=== PATIENT | female | born 1990 | race African-American/Black ===

== ENCOUNTER 2018-03-31 16:55 | Emergency (ER) | payer OTHER ==
[~2018-03-31] VITALS: Ht 160 cm; Wt 72.6 kg
== END 2018-03-31 19:18 | disposition home or self-care (01) ==
LOC: ER 16:55
DX: B34.9 Viral infection, unspecified (principal); K29.70 Gastritis, unspecified, without bleeding

== ENCOUNTER 2019-10-28 16:11 | Emergency (ER) | payer OTHER ==
[~2019-10-28] VITALS: Ht 160 cm; Wt 72.6 kg
[2019-10-28] MEDS ORDERED: DICLOFENAC SODI75 MG PO (19:50)
== END 2019-10-28 21:10 | disposition home or self-care (01) ==
LOC: ER
DX: G44.209 Tension-type headache, unspecified, not intractable (principal); M94.0 Chondrocostal junction syndrome [Tietze]